=== PATIENT | male | born 1945 | race Caucasian/White ===

== ENCOUNTER → 2022-09-07 | Outpatient (CLI) | payer MEDICARE ==
[~2022-09-07] MED LIST: GLUCAGON INJ 1MG VIAL As Ordered ONE; ISOVUE-370 76% 100ML VIAL As Ordered ONE; NEULUMEX 0.1% SUSPENSION 450ML BOTTLE (FORMERLY VOLUMEN) As Ordered ONE
== END ==
LOC: M RAD 09:25
PROVIDERS: ATTEND Physician Assistant Medical
DX: D50.9 Iron deficiency anemia, unspecified (principal)
CPT/HCPCS: 74177; J1610; Q9967

== ENCOUNTER → 2023-05-03 | Outpatient (CLI) | payer MEDICARE ==
[~2023-05-03] MED LIST changes: -GLUCAGON INJ 1MG VIAL As Ordered ONE; +ISOS1TAB35 PO; -ISOVUE-370 76% 100ML VIAL As Ordered ONE; +LASI40TA9 PO; +METO1TAB87 PO; -NEULUMEX 0.1% SUSPENSION 450ML BOTTLE (FORMERLY VOLUMEN) As Ordered ONE; +NICO21PAT TOP; +NITR0.2D5 TOP; +PANT40TA29 PO; +POTA-298 PO; +PRAV40TA2 PO; +SUCR1TA PO
== END ==
LOC: M RAD 13:40
PROVIDERS: ATTEND Physician Assistant Medical
DX: D50.9 Iron deficiency anemia, unspecified (principal); R63.4 Abnormal weight loss; T18.9XXA Foreign body of alimentary tract, part unspecified, initial encounter; R93.5 Abnormal findings on diagnostic imaging of other abdominal regions, including retroperitoneum

== ENCOUNTER 2023-06-13 16:20 | Inpatient (IN) | payer MEDICARE ==
[2023-06-13] VITALS (10 sets, daily range): BP systolic 99–125; BP diastolic 51–65; TEMP 97.8–99; O2SAT 90–98
[~2023-06-13] VITALS: Ht 177.8 cm; Wt 101.4 kg
[2023-06-13 17:53] LABS: BASO % 0.5 % (0.0-1.0); EOS # 0.2 10^3/uL (0.0-0.5); EOS % 3.6 % (0.0-3.0); HEMATOCRIT 23.2 % (42.0-52.0); HEMOGLOBIN 7.1 g/dl (13.5-17.5); LYMPH # 0.9 10^3/uL (1.5-5.0); LYMPH % 14.6 % (24.0-44.0); MEAN CORPUSCULAR HEMOGLOBIN 36.4 pg (27.0-33.0); MEAN CORPUSCULAR HGB CONC 30.6 g/dl (32.0-36.5); MONO # 0.5 10^3/uL (0.0-0.8); MONO % 8.1 % (2.0-8.0); NEUTROPHILS # 4.6 10^3/uL (1.5-8.5); NEUTROPHILS % 72.4 % (36.0-66.0); PLATELET COUNT, AUTOMATED 259 10^3/uL (150-450); RED BLOOD COUNT 1.95 10^6/uL (4.30-6.10); WHITE BLOOD COUNT 6.4 10^3/uL (4.0-10.0)
[2023-06-13 18:03] LABS: INR 1.04; LIPASE 33 U/L (12-53); PARTIAL THROMBOPLASTIN TIME 29.5 SECONDS (24.8-34.2); PROTHROMBIN TIME 13.3 SECONDS (12.5-14.5)
[2023-06-13 18:05] LABS: ALKALINE PHOSPHATASE 81 U/L (46-116); ALT/SGPT 10 U/L (7.0-40); AMYLASE 61 U/L (30-118); AST/SGOT 16 U/L (<34); BILIRUBIN,DIRECT < 0.1 MG/DL (<0.4); BILIRUBIN,TOTAL 0.2 MG/DL (0.3-1.2); BLOOD UREA NITROGEN 23 MG/DL (9-23); CALCIUM LEVEL 8.4 MG/DL (8.3-10.6); CARBON DIOXIDE LEVEL 28 MMOL/L (20-31); CHLORIDE LEVEL 104 MMOL/L (98-107); CK-MB VALUE MASS 1.1 NG/ML (<3.6); CREATININE FOR GFR 1.23 MG/DL (0.70-1.30); GLOMERULAR FILTRATION RATE > 60.0 (>42); GLUCOSE, FASTING 242 MG/DL (74-106); POTASSIUM SERUM 4.5 MMOL/L (3.5-5.1); SODIUM LEVEL 134 MMOL/L (136-145); TOTAL PROTEIN 6.2 G/DL (5.7-8.2)
[2023-06-13 18:07] LABS: CPK CREATINE PHOSPHOKINASE 41 U/L (46-171); MB/CK RELATIVE INDEX 2.68 (< OR =4)
[2023-06-13 18:25] LABS: POLYCHROMASIA 1+
[2023-06-13 18:26] LABS: HYPOCHROMASIA 1+; PLATELET ESTIMATE NORMAL (NORMAL)
[2023-06-13 19:08] LABS: MB/CK RELATIVE INDEX 2.56 (< OR =4)
[2023-06-13] MEDS: PANTOPRAZOLE SODIUM 40 MG in D5W MINI-BAG PLUS 50 ML IV SCH ×2 (20:39→22:44)
[2023-06-13] MEDS: OCTREOTIDE ACETATE 100MCG/ML VIAL **IV ADMINISTRATION ONLY IV ONE (20:39)
[2023-06-13 20:57] LABS: CK-MB VALUE MASS < 1.0 NG/ML (<3.6); CPK CREATINE PHOSPHOKINASE 44 U/L (46-171); MB/CK RELATIVE INDEX 2.27 (< OR =4)
[2023-06-13] MEDS: OCTREOTIDE ACETATE 1,200 MCG in NS 238.8 ML IV SCH ×2 (21:23→22:44)
[2023-06-13] MEDS ORDERED: NITR0.2D5 TD (22:08)
[2023-06-13] MEDS ORDERED: PANT-23 PO (22:08)
[2023-06-13] MEDS ORDERED: VITA-172 PO (22:18)
[2023-06-13] MEDS ORDERED: CARA1TAB6 PO (22:18)
[2023-06-13] MEDS ORDERED: NOVOINJ12 SC (22:18)
[2023-06-13] MEDS ORDERED: LISI2.5T9 PO (22:18)
[2023-06-13] MEDS ORDERED: MULT-40 PO (22:18)
[2023-06-13] MEDS ORDERED: VITA100093 PO (22:18)
[2023-06-13] MEDS ORDERED: HOME MED LIST COMPLETE! XX SCH (22:25)
[2023-06-13] MEDS ORDERED: ONDANSETRON 4MG 2ML VIAL IV PRN (22:45)
[2023-06-13] MEDS ORDERED: ALBUTEROL SULFATE 2.5MG/0.5ML INH NEB SOLN NEB PRN (22:45)
[2023-06-13] MEDS ORDERED: GLUCOSE 4GM CHEW TABLET PO PRN (22:45)
[2023-06-13] MEDS ORDERED: DEXTROSE 50% 50ML SYRINGE IV PRN (22:45)
[2023-06-13] MEDS ORDERED: GLUCAGON INJ 1MG VIAL SC PRN (22:45)
[2023-06-13] MEDS: ALBUTEROL SULFATE 2.5MG/0.5ML INH NEB SOLN NEB ONE (23:26)
[2023-06-14] VITALS (7 sets, daily range): BP systolic 101–147; BP diastolic 53–68; TEMP 97.3–99.6; O2SAT 92–98
[2023-06-14] MEDS: INSULIN LISPRO (NovoLOG) PER UNIT SC SCH (00:20)
[2023-06-14] MEDS: IPRATROPIUM 0.5MG/ALBUTEROL 2.5MG INH SOL UD 3ML (DUONEB) NEB SCH (01:18)
[2023-06-14 06:47] LABS: BLOOD UREA NITROGEN 19 MG/DL (9-23); CALCIUM LEVEL 7.8 MG/DL (8.3-10.6); CARBON DIOXIDE LEVEL 26 MMOL/L (20-31); CHLORIDE LEVEL 105 MMOL/L (98-107); CREATININE FOR GFR 1.15 MG/DL (0.70-1.30); GLOMERULAR FILTRATION RATE > 60.0 (>42); GLUCOSE, FASTING 205 MG/DL (74-106); POTASSIUM SERUM 4.7 MMOL/L (3.5-5.1); SODIUM LEVEL 139 MMOL/L (136-145)
[2023-06-14] MEDS ORDERED: ISOVUE-370 76% 100ML VIAL As Ordered ONE (07:16)
[2023-06-14] MEDS: NICOTINE 7 MG/24 HR TRANSDERMAL TD SCH (10:42)
[2023-06-14] MEDS: LISINOPRIL *2.5 MG* TAB PO SCH (12:37)
[2023-06-14] MEDS: SUCRALFATE 1 GM TAB PO SCH (12:39)
[2023-06-14] MEDS: MOM 30ML SUSPENSION UDC PO ONE (14:06)
[2023-06-14] MEDS: POLYETHYLENE GLYCOL (MIRALAX) 238GM BOTTLE PO ONE (17:17)
[2023-06-14] MEDS: PRAVASTATIN 20 MG TAB PO SCH (21:04)
[2023-06-15 03:59] VITALS: BP 106/56; TEMP 97.5; O2SAT 96
[2023-06-15] MEDS: POLYETHYLENE GLYCOL (MIRALAX) 238GM BOTTLE PO ONE (06:06)
[2023-06-15 06:15] LABS: HEMATOCRIT 29.7 % (42.0-52.0); HEMOGLOBIN 9.3 g/dl (13.5-17.5); MEAN CORPUSCULAR HEMOGLOBIN 33.7 pg (27.0-33.0); MEAN CORPUSCULAR HGB CONC 31.3 g/dl (32.0-36.5); MEAN CORPUSCULAR VOLUME 107.6 fl (80.0-96.0); PLATELET COUNT, AUTOMATED 201 10^3/uL (150-450); RED BLOOD COUNT 2.76 10^6/uL (4.30-6.10); WHITE BLOOD COUNT 7.3 10^3/uL (4.0-10.0)
[2023-06-15 06:34] LABS: BLOOD UREA NITROGEN 13 MG/DL (9-23); CALCIUM LEVEL 8.2 MG/DL (8.3-10.6); CARBON DIOXIDE LEVEL 30 MMOL/L (20-31); CHLORIDE LEVEL 104 MMOL/L (98-107); CREATININE FOR GFR 1.09 MG/DL (0.70-1.30); GLOMERULAR FILTRATION RATE > 60.0 (>42); GLUCOSE, FASTING 193 MG/DL (74-106); MAGNESIUM LEVEL 2.2 MG/DL (1.8-2.4); POTASSIUM SERUM 4.6 MMOL/L (3.5-5.1); SODIUM LEVEL 139 MMOL/L (136-145)
[2023-06-15 08:01] VITALS: BP 132/63; TEMP 96.8; O2SAT 98
[2023-06-15 12:27] VITALS: BP 133/62; TEMP 97.4; O2SAT 95
[2023-06-15 15:58] LABS: IRON (FE) 29 UG/DL (65-175); TOTAL IRON BINDING CAPACITY 362 UG/DL (250-425)
[2023-06-15 16:01] LABS: FERRITIN 69.9 NG/ML (10.5-307.3)
[2023-06-15 16:41] VITALS: BP 136/63; TEMP 97.4; O2SAT 93
[2023-06-15] MEDS: INSULIN LISPRO (NovoLOG) PER UNIT SC SCH ×2 (17:44→20:04)
[2023-06-15 18:50] VITALS: BP 149/66; TEMP 97.5; O2SAT 97
[2023-06-15] MEDS ORDERED: IRON POLYSAC (NIFEREX) 150 MG CAP PO SCH (21:00)
[2023-06-15] MEDS: PANTOPRAZOLE 40MG TAB (PROTONIX) PO SCH (21:06)
[2023-06-15 23:51] VITALS: BP 152/71; TEMP 97.4; O2SAT 95
[2023-06-16 04:05] VITALS: BP 136/69; TEMP 97.6; O2SAT 94
[2023-06-16 06:04] LABS: HEMATOCRIT 27.9 % (42.0-52.0); HEMOGLOBIN 8.8 g/dl (13.5-17.5); MEAN CORPUSCULAR HEMOGLOBIN 33.8 pg (27.0-33.0); MEAN CORPUSCULAR HGB CONC 31.5 g/dl (32.0-36.5); MEAN CORPUSCULAR VOLUME 107.3 fl (80.0-96.0); PLATELET COUNT, AUTOMATED 209 10^3/uL (150-450); WHITE BLOOD COUNT 5.9 10^3/uL (4.0-10.0)
[2023-06-16 06:24] LABS: BLOOD UREA NITROGEN 16 MG/DL (9-23); CALCIUM LEVEL 7.9 MG/DL (8.3-10.6); CARBON DIOXIDE LEVEL 28 MMOL/L (20-31); CHLORIDE LEVEL 104 MMOL/L (98-107); CREATININE FOR GFR 1.14 MG/DL (0.70-1.30); GLOMERULAR FILTRATION RATE > 60.0 (>42); GLUCOSE, FASTING 175 MG/DL (74-106); MAGNESIUM LEVEL 1.8 MG/DL (1.8-2.4); POTASSIUM SERUM 4.5 MMOL/L (3.5-5.1); SODIUM LEVEL 138 MMOL/L (136-145)
[2023-06-16 07:43] VITALS: BP 118/57; TEMP 97.5; O2SAT 94
[2023-06-16 08:02] VITALS: BP 118/57
[2023-06-16] MEDS ORDERED: FERR325T3 PO (10:39)
[2023-06-16 10:55] VITALS: BP 122/57; TEMP 97.6; O2SAT 95
[2023-06-16] MEDS: FERRIC CARBOXYMALTOSE INJ 750 MG, VIAL MATE ADAPTER 1 EACH in NS 250 ML IV ONE (10:55)
[2023-06-16 11:52] VITALS: BP 115/68; TEMP 97.7; O2SAT 95
== END 2023-06-16 13:37 | disposition home health service (06) | DRG 394 ==
LOC: M ED 16:20 → M ED INP 22:45 → M PCU 06-14 09:13
PROVIDERS: ADMIT Internal Medicine; ATTEND Internal Medicine
PROC: 30233N1 Transfusion of Nonautologous Red Blood Cells into Peripheral Vein, Percutaneous Approach (ICD-10-PCS; 2023-06-13)
PROC: 0W3P8ZZ Control Bleeding in Gastrointestinal Tract, Via Natural or Artificial Opening Endoscopic (ICD-10-PCS; 2023-06-15)
PROC: 0W3P8ZZ Control Bleeding in Gastrointestinal Tract, Via Natural or Artificial Opening Endoscopic (ICD-10-PCS; principal; 2023-06-15 14:30)
DX: K55.20 Angiodysplasia of colon without hemorrhage (principal); D62 Acute posthemorrhagic anemia; J84.9 Interstitial pulmonary disease, unspecified; J44.9 Chronic obstructive pulmonary disease, unspecified; I25.10 Atherosclerotic heart disease of native coronary artery without angina pectoris; E11.9 Type 2 diabetes mellitus without complications; K57.30 Diverticulosis of large intestine without perforation or abscess without bleeding; F17.210 Nicotine dependence, cigarettes, uncomplicated; K31.819 Angiodysplasia of stomach and duodenum without bleeding; D50.9 Iron deficiency anemia, unspecified; R07.9 Chest pain, unspecified; I10 Essential (primary) hypertension; E78.5 Hyperlipidemia, unspecified; Z79.4 Long term (current) use of insulin; Z79.899 Other long term (current) drug therapy; Z95.5 Presence of coronary angioplasty implant and graft

== ENCOUNTER → 2023-07-20 | Outpatient (REF) ==
[~2023-07-20] MED LIST changes: +CARA1TAB6 PO; +FERR325T3 PO; +LISI2.5T9 PO; +MULT-40 PO; +NITR0.2D5 TD; +NOVOINJ12 SC; +PANT-23 PO; +VITA-172 PO; +VITA100093 PO
== END ==
LOC: M PLAIMG 13:39
PROVIDERS: ATTEND Internal Medicine
DX: J90 Pleural effusion, not elsewhere classified (principal)

== ENCOUNTER 2023-07-26 15:43 | Emergency (ER) | payer MEDICARE ==
[~2023-07-26] VITALS: Ht 177.8 cm; Wt 99.5 kg
[2023-07-26] MEDS ORDERED: BISO5TAB14 PO (15:53)
[2023-07-26] MEDS ORDERED: METF500T13 PO (15:53)
[2023-07-26 16:35] LABS: BASO % 0.2 % (0.0-1.0); EOS # 0.1 10^3/uL (0.0-0.5); EOS % 2.2 % (0.0-3.0); HEMOGLOBIN 6.1 g/dl (13.5-17.5); LYMPH # 0.8 10^3/uL (1.5-5.0); LYMPH % 13.1 % (24.0-44.0); MEAN CORPUSCULAR HEMOGLOBIN 35.5 pg (27.0-33.0); MEAN CORPUSCULAR HGB CONC 31.8 g/dl (32.0-36.5); MEAN CORPUSCULAR VOLUME 111.6 fl (80.0-96.0); MONO # 0.6 10^3/uL (0.0-0.8); MONO % 8.6 % (2.0-8.0); NEUTROPHILS # 4.8 10^3/uL (1.5-8.5); PLATELET COUNT, AUTOMATED 215 10^3/uL (150-450); RED BLOOD COUNT 1.72 10^6/uL (4.30-6.10); WHITE BLOOD COUNT 6.4 10^3/uL (4.0-10.0)
[2023-07-26 16:36] LABS: HEMATOCRIT 19.2 % (42.0-52.0)
[2023-07-26 16:50] LABS: INR 1.2; PROTHROMBIN TIME 14.9 SECONDS (12.5-14.5)
[2023-07-26 16:55] LABS: LIPASE 24 U/L (12-53)
[2023-07-26 16:56] LABS: CK-MB VALUE MASS 1.2 NG/ML (<3.6); CPK CREATINE PHOSPHOKINASE 36 U/L (46-171); MB/CK RELATIVE INDEX 3.33 (< OR =4)
[2023-07-26 16:58] LABS: ALKALINE PHOSPHATASE 76 U/L (46-116); ALT/SGPT 12 U/L (7.0-40); AST/SGOT < 8 U/L (<34); BILIRUBIN,DIRECT < 0.1 MG/DL (<0.4); BILIRUBIN,TOTAL 0.3 MG/DL (0.3-1.2); BLOOD UREA NITROGEN 27 MG/DL (9-23); CARBON DIOXIDE LEVEL 29 MMOL/L (20-31); CHLORIDE LEVEL 107 MMOL/L (98-107); CREATININE FOR GFR 1.12 MG/DL (0.70-1.30); GLOMERULAR FILTRATION RATE > 60.0 (>42); GLUCOSE, FASTING 164 MG/DL (74-106); POTASSIUM SERUM 4.1 MMOL/L (3.5-5.1); SODIUM LEVEL 138 MMOL/L (136-145); TOTAL PROTEIN 5.9 G/DL (5.7-8.2)
[2023-07-26 17:55] VITALS: BP 132/64; TEMP 98.6; O2SAT 97
[2023-07-26 18:10] VITALS: BP 131/64; TEMP 97.8; O2SAT 97
[2023-07-26 18:27] LABS: CK-MB VALUE MASS < 1.0 NG/ML (<3.6)
[2023-07-26 18:28] LABS: CPK CREATINE PHOSPHOKINASE 33 U/L (46-171); MB/CK RELATIVE INDEX 3.03 (< OR =4)
[2023-07-26 19:04] VITALS: BP 117/61; TEMP 98.6; O2SAT 96
[2023-07-26 19:42] VITALS: BP 128/67; TEMP 99; O2SAT 96
[2023-07-26 20:45] VITALS: BP 146/67; TEMP 99; O2SAT 97
== END 2023-07-26 20:51 | disposition short-term general hospital (02) ==
LOC: M ED 15:43
DX: K92.2 Gastrointestinal hemorrhage, unspecified (principal); E11.9 Type 2 diabetes mellitus without complications; K57.92 Diverticulitis of intestine, part unspecified, without perforation or abscess without bleeding; Z95.5 Presence of coronary angioplasty implant and graft; F17.200 Nicotine dependence, unspecified, uncomplicated; Z79.4 Long term (current) use of insulin; Z79.899 Other long term (current) drug therapy
CPT/HCPCS: 36430; 71045; 80048; 80076; 82550; 82553; 83690; 84484; 85025; 85610; 86850; 86900; 86901; 86920; 87635; 93005; 93041; 94760; 99285; P9016

== ENCOUNTER 2024-06-03 06:20 | Day surgery (SDC) | payer MEDICARE, OTHER ==
[~2024-06-03] VITALS: Ht 177.8 cm; Wt 99.2 kg
[~2024-06-03 06:20] MED LIST changes: +BISO5TAB14 PO; +METF500T13 PO
[2024-06-03] MEDS ORDERED: fentaNYL 100 MCG/2 ML INJECTION As Ordered ONE (06:55)
[2024-06-03] MEDS ORDERED: LR 1,000 ML IV SCH (07:00)
[2024-06-03] MEDS ORDERED: DEXTROSE 50% 50ML SYRINGE IV PRN (07:40)
[2024-06-03] MEDS ORDERED: GLUCOSE 4 GM CHEW PO PRN (07:40)
[2024-06-03] MEDS ORDERED: GLUCAGON INJ 1MG VIAL SC PRN (07:40)
[2024-06-03] MEDS: INSULIN LISPRO (NovoLOG) PER UNIT SC PRN (08:00)
[2024-06-03] MEDS: LIDOCAINE 1% SDV 5ML VIAL As Ordered ONE (09:02)
[2024-06-03] MEDS: CEFUROXIME 1MG/0.1ML INTRACAMERAL INJ As Ordered ONE (09:02)
[2024-06-03] MEDS: CYCLOPENTOLATE 1% OPHTH SOLN 2ML BTL OS SCH (09:12)
[2024-06-03] MEDS: FLURBIPROFEN 0.03% OPHTH SOLN 2.5 ML OS SCH (09:12)
[2024-06-03] MEDS: PHENYLEPHRINE 2.5% OPHTH SOL 2ML OS SCH (09:12)
[2024-06-03] MEDS: TETRACAINE 0.5% OPHTH SOLN 4ML OS SCH (09:12)
[2024-06-03 09:20] VITALS: BP 142/72; TEMP 97.8; O2SAT 97
== END 2024-06-03 09:34 | disposition home or self-care (01) ==
LOC: M SDC 06:20
PROVIDERS: ATTEND Ophthalmology
DX: E11.36 Type 2 diabetes mellitus with diabetic cataract (principal); H25.12 Age-related nuclear cataract, left eye; I10 Essential (primary) hypertension; E78.00 Pure hypercholesterolemia, unspecified; J44.9 Chronic obstructive pulmonary disease, unspecified; G47.30 Sleep apnea, unspecified; Z79.4 Long term (current) use of insulin; Z79.899 Other long term (current) drug therapy; Z87.19 Personal history of other diseases of the digestive system; F17.210 Nicotine dependence, cigarettes, uncomplicated; K21.9 Gastro-esophageal reflux disease without esophagitis
CPT/HCPCS: 66984; J0697; J3010; V2632

== ENCOUNTER 2024-07-22 05:55 | Day surgery (SDC) | payer MEDICARE, OTHER ==
[~2024-07-22] VITALS: Ht 177.8 cm; Wt 96.8 kg
[~2024-07-22 05:55] MED LIST changes: +SPIR-10 PO
[2024-07-22] MEDS: CYCLOPENTOLATE 1% OPHTH SOLN 2ML BTL OS SCH (06:37)
[2024-07-22] MEDS: PHENYLEPHRINE 2.5% OPHTH SOL 2ML OS SCH (06:37)
[2024-07-22] MEDS: TETRACAINE 0.5% OPHTH SOLN 4ML OS SCH (06:37)
[2024-07-22] MEDS: FLURBIPROFEN 0.03% OPHTH SOLN 2.5 ML OS SCH (06:37)
[2024-07-22] MEDS ORDERED: PHENYLephrine 500MCG 5ML (100MCG/ML) SYRINGE As Ordered ONE (06:55)
[2024-07-22] MEDS ORDERED: GLYCOPYRROLATE INJ 0.2 MG/ML 2 ML VIAL As Ordered ONE (06:55)
[2024-07-22] MEDS ORDERED: dexmedeTOMIDine (4MCG/ML)200MCG/50ML BTL (PRECEDEX) As Ordered ONE (06:55)
[2024-07-22] MEDS ORDERED: propofoL 200 MG/20 ML VIAL As Ordered ONE (06:57)
[2024-07-22] MEDS ORDERED: LIDOCAINE 2% 100MG/5ML SDV (FOR ANES.) As Ordered ONE (06:59)
[2024-07-22] MEDS ORDERED: LR 1,000 ML IV SCH (07:00)
[2024-07-22] MEDS ORDERED: GLUCOSE 4 GM CHEW PO PRN (07:20)
[2024-07-22] MEDS ORDERED: DEXTROSE 50% 50ML SYRINGE IV PRN (07:20)
[2024-07-22] MEDS ORDERED: GLUCAGON INJ 1MG VIAL SC PRN (07:20)
[2024-07-22] MEDS: INSULIN LISPRO (NovoLOG) PER UNIT SC PRN (07:20)
[2024-07-22] MEDS ORDERED: fentaNYL 100 MCG/2 ML INJECTION As Ordered ONE (07:26)
[2024-07-22] MEDS: LIDOCAINE 1% SDV 5ML VIAL As Ordered ONE (07:33)
[2024-07-22] MEDS: CEFUROXIME 1MG/0.1ML INTRACAMERAL INJ As Ordered ONE (07:33)
[2024-07-22 07:51] VITALS: BP 151/69; TEMP 98.2; O2SAT 94
== END 2024-07-22 08:14 | disposition home or self-care (01) ==
LOC: M SDC 05:55
PROVIDERS: ATTEND Ophthalmology
DX: E11.36 Type 2 diabetes mellitus with diabetic cataract (principal); H25.11 Age-related nuclear cataract, right eye; I25.10 Atherosclerotic heart disease of native coronary artery without angina pectoris; I10 Essential (primary) hypertension; J44.9 Chronic obstructive pulmonary disease, unspecified; E78.00 Pure hypercholesterolemia, unspecified; D50.9 Iron deficiency anemia, unspecified; Z95.5 Presence of coronary angioplasty implant and graft; Z79.899 Other long term (current) drug therapy; Z79.4 Long term (current) use of insulin
CPT/HCPCS: 66984; J0697; J1596; J3010; V2632